=== PATIENT | female | born 1960 | race Caucasian/White ===

== ENCOUNTER → 2019-12-23 12:19 | Outpatient (BNVA) | payer OTHER, SELFPAY | PROVIDERS: Family Provider Registered Nurse; PCP Registered Nurse; Visit Provider Registered Nurse | DX: E03.9 Hypothyroidism, unspecified (principal) | CPT/HCPCS: 84432; 84443; 84481; 86376; 86800 ==

== ENCOUNTER → 2020-01-04 10:24 | Outpatient (BNVA) | payer OTHER, SELFPAY | PROVIDERS: Family Provider Registered Nurse; PCP Registered Nurse; Visit Provider Nurse Practitioner | DX: Z00.00 Encounter for general adult medical examination without abnormal findings (principal); R53.83 Other fatigue | CPT/HCPCS: 80053; 82306; 82607; 83036 ==

== ENCOUNTER → 2020-01-05 11:54 | Outpatient (BNVA) | payer OTHER, SELFPAY | PROVIDERS: Family Provider Registered Nurse; PCP Registered Nurse; Visit Provider Nurse Practitioner | DX: Z00.00 Encounter for general adult medical examination without abnormal findings (principal); R53.83 Other fatigue | CPT/HCPCS: 80053; 81001; 87086 ==

== ENCOUNTER → 2020-03-02 11:40 | Outpatient (BNVA) | payer OTHER, SELFPAY | PROVIDERS: Family Provider Registered Nurse; PCP Registered Nurse; Visit Provider Registered Nurse | DX: E03.9 Hypothyroidism, unspecified (principal) | CPT/HCPCS: 84443 ==

== ENCOUNTER → 2020-06-27 15:49 | Outpatient (BNVA) | payer OTHER, SELFPAY | PROVIDERS: Family Provider Registered Nurse; PCP Registered Nurse; Visit Provider Registered Nurse | DX: Z11.59 Encounter for screening for other viral diseases (principal) | CPT/HCPCS: 87635 ==

== ENCOUNTER → 2020-09-01 00:01 | Outpatient (BNVA) | payer OTHER, SELFPAY | PROVIDERS: Family Provider Registered Nurse; PCP Registered Nurse; Visit Provider Registered Nurse | DX: E03.9 Hypothyroidism, unspecified (principal); R31.9 Hematuria, unspecified | CPT/HCPCS: 80053; 81003; 82306; 82607; 83540; 84443; 87086 ==

== ENCOUNTER → 2020-12-04 15:43 | Outpatient (BNVA) | payer OTHER, SELFPAY | PROVIDERS: Family Provider Registered Nurse; PCP Registered Nurse; Visit Provider Nurse Practitioner Family | DX: E03.9 Hypothyroidism, unspecified (principal) | CPT/HCPCS: 80053; 84443; 85025 ==

== ENCOUNTER → 2020-12-07 16:39 | Outpatient (BNVA) | payer OTHER, SELFPAY | PROVIDERS: Family Provider Registered Nurse; PCP Registered Nurse; Visit Provider Family Medicine | DX: M54.5 Low back pain (principal) | CPT/HCPCS: 81003 ==

== ENCOUNTER → 2021-01-02 08:38 | Outpatient (BNVA) | payer OTHER, SELFPAY | PROVIDERS: Family Provider Registered Nurse; PCP Registered Nurse; Visit Provider Nurse Practitioner Family | DX: E03.9 Hypothyroidism, unspecified (principal); E66.9 Obesity, unspecified; R80.9 Proteinuria, unspecified | CPT/HCPCS: 36415; 80053; 82043; 82306; 84439; 84481; 85025 ==

== ENCOUNTER → 2021-01-04 16:08 | Outpatient (BNVA) | payer OTHER, SELFPAY | PROVIDERS: Family Provider Registered Nurse; PCP Registered Nurse; Visit Provider Family Medicine | DX: M54.9 Dorsalgia, unspecified (principal) | CPT/HCPCS: 74018 ==

== ENCOUNTER → 2021-02-07 11:02 | Outpatient (BNVA) | payer OTHER, SELFPAY | PROVIDERS: Family Provider Registered Nurse; PCP Registered Nurse; Visit Provider Family Medicine | DX: R10.13 Epigastric pain (principal); N02.9 Recurrent and persistent hematuria with unspecified morphologic changes; F41.9 Anxiety disorder, unspecified; Z20.828 Contact with and (suspected) exposure to other viral communicable diseases | CPT/HCPCS: 80053; 83690; 85025; 86140 ==

== ENCOUNTER → 2021-05-04 12:03 | Outpatient (BNVA) | payer OTHER, SELFPAY | PROVIDERS: Family Provider Registered Nurse; PCP Registered Nurse; Visit Provider Family Medicine | DX: E03.9 Hypothyroidism, unspecified (principal) | CPT/HCPCS: 84443 ==

== ENCOUNTER 2021-06-01 10:30 | Outpatient (CLI) | payer OTHER, SELFPAY ==
--- NOTE | 2021-06-01 10:37 | MM_ITS ---
WS: [id number] Bilateral screening digital mammogram, 06/01/2021 Clinical Data: SCREENING Comparison: 09/07/2019, 02/28/2012, 03/20/2006, 01/29/2005, 05/25/2003. Findings: The breast parenchymal pattern shows heterogeneous density No spiculated masses or clustered calcific ations are seen. There are small benign calcifications throughout both breasts. There are no secondar y signs of carcinoma. There are small lymph nodes in both axilla. MM/[place] [id number] Impression: 1. Negative bilateral mammogram unchanged. 2. Recommend annual screening mammograms. BIRADS: 1-Negative FOLLOW UP: 1 Year Follow-up The CAD quality checker was used.
== END 2021-06-01 10:31 | disposition home or self-care (01) ==
LOC: RADSHAW 10:35
PROVIDERS: PCP Registered Nurse; Visit Provider Family Medicine
DX: Z12.31 Encounter for screening mammogram for malignant neoplasm of breast (principal)
CPT/HCPCS: 77067

== ENCOUNTER → 2021-07-06 10:56 | Outpatient (BNVA) | payer OTHER, SELFPAY | PROVIDERS: PCP Registered Nurse; Visit Provider Family Medicine | DX: E03.9 Hypothyroidism, unspecified (principal); R80.9 Proteinuria, unspecified | CPT/HCPCS: 80053; 81003; 82043; 83690; 85025; 86140; 87086 ==

== ENCOUNTER → 2021-08-31 13:29 | Outpatient (BNVA) | payer OTHER, SELFPAY | PROVIDERS: PCP Registered Nurse; Visit Provider Family Medicine | DX: Z11.1 Encounter for screening for respiratory tuberculosis (principal) | CPT/HCPCS: 71046 ==

== ENCOUNTER → 2021-09-11 13:25 | Outpatient (BNVA) | payer OTHER, SELFPAY | PROVIDERS: PCP Registered Nurse; Visit Provider Nurse Practitioner Family | DX: Z98.1 Arthrodesis status (principal) | CPT/HCPCS: 72052 ==

== ENCOUNTER → 2021-09-28 00:01 | Outpatient (BNVA) | payer OTHER, SELFPAY | PROVIDERS: PCP Registered Nurse; Visit Provider Family Medicine | DX: Z87.440 Personal history of urinary (tract) infections (principal); R31.29 Other microscopic hematuria | CPT/HCPCS: 82043 ==

== ENCOUNTER → 2021-10-22 15:42 | Outpatient (BNVA) | payer OTHER, SELFPAY | PROVIDERS: PCP Registered Nurse; Visit Provider Family Medicine | DX: Z87.440 Personal history of urinary (tract) infections (principal); R31.29 Other microscopic hematuria; R80.9 Proteinuria, unspecified | CPT/HCPCS: 82043; 87086; 88112 ==

== ENCOUNTER → 2021-12-13 16:36 | Outpatient (BNVA) | payer OTHER, SELFPAY | PROVIDERS: PCP Registered Nurse; Visit Provider Family Medicine | DX: M25.562 Pain in left knee (principal) | CPT/HCPCS: 73562 ==

== ENCOUNTER → 2021-12-25 08:52 | Outpatient (BNVA) | payer OTHER, SELFPAY | PROVIDERS: PCP Registered Nurse; Visit Provider Family Medicine | DX: E53.8 Deficiency of other specified B group vitamins (principal); E03.9 Hypothyroidism, unspecified; Z13.6 Encounter for screening for cardiovascular disorders | CPT/HCPCS: 82607; 83921 ==

== ENCOUNTER → 2021-12-25 08:56 | Outpatient (BNVA) | payer OTHER, SELFPAY | PROVIDERS: PCP Registered Nurse; Referring Provider Family Medicine; Visit Provider Dermatology | DX: E03.9 Hypothyroidism, unspecified (principal); Z13.6 Encounter for screening for cardiovascular disorders; E53.8 Deficiency of other specified B group vitamins ==

== ENCOUNTER 2022-01-01 16:20 | Outpatient (CLI) | payer OTHER, SELFPAY ==
--- NOTE | 2022-01-01 16:45 | MR_ITS ---
WS: [id number] MRI CERVICAL SPINE NONCONTRAST HISTORY: M54.12 - Radiculopathy, cervical region COMPARISON: Cervical radiographs 09/11/2021 Technique: Multiplanar, multisequence noncontrast imaging of the cervical spine. Straightening of the normal cervical lordosis. Moderate to severe disc space narrowing from C3-4 to C 6-7. 2 mm retrolisthesis of C3, C4, C5 and C6. No acute fracture. Small amount of marrow edema in the C6 and C7 vertebral bodies. Signal within the cord is normal. There is increased T2 signal on the STIR sequence and the ventral c ord at the C4-5 level but this is only seen on one sequence. Mild ectopia of the cerebellar tonsils. No Chiari malformation. C2-C3: Shallow central disc protrusion no significant stenosis. C3-C4: Mild osteophytic ridging around the vertebral body and slight annular disc bulging. Osteophyte s encroach into the foramen causing mild bilateral foraminal narrowing and mild central stenosis. C4-C5: Near complete effacement of CSF surrounding the cord. Disc and osteophyte encroachment upon th e ventral thecal sac. Moderate size osteophytes extend into the foramen causing moderate bilateral fo raminal stenosis, RIGHT greater than LEFT. Moderate central stenosis. C5-C6: Osteophytic ridging and annular disc bulging. Disc and osteophyte encroachment upon the ventra l thecal sac with osteophytes extending into the foramen. Disc osteophyte in the LEFT foramen. Modera te central and bilateral foraminal stenosis. C6-C7: Diffuse osteophytic ridging with annular disc bulging. Disc osteophyte complexes and the neura l foramen. There is at least moderate central stenosis and bilateral foraminal stenosis. C7-T1: Mild osteophytic ridging with a small disc osteophyte complex in the LEFT foramen. Mild centra l and bilateral foraminal stenosis. T1-T2: Small central disc protrusion with mild contact on the ventral thoracic cord. Paraspinal soft tissue are normal. MR/MR cervical spin wo con* [id number] IMPRESSION: 1. Multilevel moderate to severe degenerative changes throughout the cervical spine. 2. Degenerative disc disease with osteophytes and stenoses from C3-4 to C7-T1. 3. Moderate central and bilateral foraminal stenosis from C4-5 through C6-7 d ue to disc and osteophyte disease. 4. Mild central and bilateral foraminal stenosis at C3-4 and C7-T1 due to disc and osteophyte disease. 5. Small central disc protrusions at C3-4 and T1-2.
== END 2022-01-01 16:21 | disposition home or self-care (01) ==
PROVIDERS: PCP Registered Nurse; Visit Provider Family Medicine
DX: M54.12 Radiculopathy, cervical region (principal); M25.78 Osteophyte, vertebrae; M48.02 Spinal stenosis, cervical region; M48.03 Spinal stenosis, cervicothoracic region; M50.21 Other cervical disc displacement, high cervical region; M51.24 Other intervertebral disc displacement, thoracic region
CPT/HCPCS: 72141

== ENCOUNTER → 2022-01-03 14:45 | Outpatient (BNVA) | payer OTHER, SELFPAY | PROVIDERS: PCP Registered Nurse; Visit Provider Urology | DX: R31.29 Other microscopic hematuria (principal) | CPT/HCPCS: 81003 ==

== ENCOUNTER → 2022-01-10 12:08 | Outpatient (BNVA) | payer OTHER, SELFPAY | PROVIDERS: PCP Registered Nurse; Visit Provider Family Medicine | DX: R42 Dizziness and giddiness (principal); R55 Syncope and collapse | CPT/HCPCS: 82728; 83550 ==

== ENCOUNTER 2022-01-11 09:17 | Outpatient (CLI) | payer OTHER, SELFPAY ==
--- NOTE | 2022-01-11 09:30 | US_ITS ---
WS: [id number] RENAL ULTRASOUND HISTORY: MICROSCOPIC HEMATURIA COMPARISON: 08/26/2018, CT 05/15/2018 TECHNIQUE: 2-D and color Doppler imaging of the kidney submitted. Right kidney: 9.7 cm x 3.6 cm x 4.2 cm. Normal size kidney. No cortical thinning. There is a very minimal prominence of the renal pelvis. Thi s was also noted on a prior ultrasound and also a CT. Probably normal extrarenal pelvis. No calyceal dilatation. Left kidney: 11.4 cm x 4.6 cm x 5.7 cm. Normal echogenicity with no hydronephrosis or mass. Aorta: Normal. Urinary Bladder: Minimally distended bladder. No intraluminal filling defect. US/US renal BI* [id number] IMPRESSION: 1. No hydronephrosis or solid renal mass. 2. RIGHT kidney is slightly smaller than the LEFT but this is not a new findin g. 3. Small extrarenal pelvis on the RIGHT. No calyceal dilatation.
== END 2022-01-11 09:18 | disposition home or self-care (01) ==
PROVIDERS: PCP Registered Nurse; Visit Provider Urology
DX: R31.29 Other microscopic hematuria (principal)
CPT/HCPCS: 76770

== ENCOUNTER 2023-08-13 10:34 | Outpatient (CLI) | payer OTHER, SELFPAY ==
--- NOTE | 2023-08-13 10:00 | MM_ITS ---
WS: [email or web address] BILATERAL 3D TOMOSYNTHESIS DIGITAL SCREENING MAMMOGRAPHY WITH CAD CLINICAL INFORMATION: SCREENING HISTORY: Screening mammogram. No current complaints. COMPARISON: 2020 TECHNIQUE: Bilateral CC and MLO views. FINDINGS: The breasts are composed of heterogeneous fibroglandular density tissue, which can limit the detectio n of small underlying mass lesions. No suspicious mass, asymmetry, calcifications, or architectural d istortion. No evidence of malignancy. Punctate and lucent centered calcifications. Vascular calcifica tion. IMPRESSION: MM/[place] [id number] BI-RADS: 2-Benign FOLLOW UP: 1 Year Follow-up Recommend return to annual screening mammography.
== END 2023-08-13 10:35 | disposition home or self-care (01) ==
LOC: MOBLMAM 10:39
PROVIDERS: PCP Registered Nurse; Visit Provider Nurse Practitioner Family
DX: Z12.31 Encounter for screening mammogram for malignant neoplasm of breast (principal); E03.9 Hypothyroidism, unspecified; R31.29 Other microscopic hematuria
CPT/HCPCS: 77063; 77067; 80053; 80061; 81000; 82306; 84439; 84443; 85025

== ENCOUNTER → 2023-11-06 11:29 | Outpatient (BNVA) | payer OTHER, SELFPAY | PROVIDERS: PCP Registered Nurse; Visit Provider Nurse Practitioner Family | DX: E88.9 Metabolic disorder, unspecified (principal); R31.29 Other microscopic hematuria | CPT/HCPCS: 80053; 81003; 87086 ==

== ENCOUNTER → 2024-01-06 09:34 | Outpatient (BNVA) | payer OTHER, SELFPAY | PROVIDERS: PCP Registered Nurse; Visit Provider Nurse Practitioner Family | DX: E88.9 Metabolic disorder, unspecified (principal); E03.9 Hypothyroidism, unspecified; R80.9 Proteinuria, unspecified; N28.9 Disorder of kidney and ureter, unspecified; R31.29 Other microscopic hematuria; Z87.440 Personal history of urinary (tract) infections | CPT/HCPCS: 80053; 81000; 81003; 82043; 87086 ==

== ENCOUNTER 2024-01-14 06:36 | Outpatient (CLI) | payer OTHER, SELFPAY ==
--- NOTE | 2024-01-14 06:45 | US_ITS ---
WS: [email or web address] ULTRASOUND RENAL TECHNIQUE: Ultrasound examination of both kidneys. CLINICAL INFORMATION: N28.9 - Disorder of kidney and ureter, unspecified COMPARISON: 01/11/2022 and 08/26/2018 FINDINGS: RIGHT: Right kidney is normal in size and appearance. Normal RIGHT extrarenal pelvis unchanged compared to p revious. Echogenicity: Normal. Cortical thickness: 0.9 cm; Normal. Hydronephrosis: None. Perinephric fluid: None. Right kidney measures: 10.5 cm x 5.2 cm x 4.4 cm. LEFT: Left kidney is normal in size and appearance. Echogenicity: Normal. Cortical thickness: 1.0 cm; Normal. Hydronephrosis: None. Perinephric fluid: None. Left kidney measures: 11.4 cm x 4.4 cm x 5.2 cm. Normal visualized aorta. Normal bladder. IMPRESSION: 1. Normal renal ultrasound 2. No significant changes since 01/11/2022
== END 2024-01-14 06:37 | disposition home or self-care (01) ==
LOC: RAD 06:36
PROVIDERS: PCP Registered Nurse; Visit Provider Nurse Practitioner Family
DX: N28.9 Disorder of kidney and ureter, unspecified (principal)
CPT/HCPCS: 76770

== ENCOUNTER → 2024-02-25 13:39 | Outpatient (BNVA) | payer OTHER, SELFPAY | PROVIDERS: PCP Registered Nurse; Visit Provider Nurse Practitioner Family | DX: J18.9 Pneumonia, unspecified organism (principal) | CPT/HCPCS: 71046 ==

== ENCOUNTER → 2024-03-15 11:21 | Outpatient (BNVA) | payer OTHER, SELFPAY | PROVIDERS: PCP Nurse Practitioner Family; Visit Provider Nurse Practitioner Family | DX: N28.9 Disorder of kidney and ureter, unspecified (principal); E03.9 Hypothyroidism, unspecified; R53.83 Other fatigue; R06.02 Shortness of breath; R05.9 Cough, unspecified | CPT/HCPCS: 71046; 80053; 82607; 82728; 83550; 84443; 85025; 85651; 86140 ==

== ENCOUNTER → 2024-04-14 11:10 | Outpatient (BNVA) | payer OTHER, SELFPAY | PROVIDERS: PCP Nurse Practitioner Family; Visit Provider Nurse Practitioner Family | DX: R31.29 Other microscopic hematuria (principal); R80.9 Proteinuria, unspecified; Z87.440 Personal history of urinary (tract) infections | CPT/HCPCS: 81003; 87086 ==

== ENCOUNTER → 2024-06-18 12:05 | Outpatient (BNVA) | payer OTHER, SELFPAY | PROVIDERS: PCP Nurse Practitioner Family; Visit Provider Nurse Practitioner Family | DX: Z87.440 Personal history of urinary (tract) infections (principal) | CPT/HCPCS: 81003; 87077; 87086; 87184 ==

== ENCOUNTER → 2024-06-22 11:11 | Outpatient (BNVA) | payer OTHER, SELFPAY | PROVIDERS: PCP Nurse Practitioner Family; Visit Provider Nurse Practitioner Family | DX: N28.9 Disorder of kidney and ureter, unspecified (principal); E03.9 Hypothyroidism, unspecified; Z87.440 Personal history of urinary (tract) infections | CPT/HCPCS: 81003; 87086 ==

== ENCOUNTER → 2024-07-26 16:32 | Outpatient (BNVA) | payer OTHER, SELFPAY | PROVIDERS: PCP Nurse Practitioner Family; Visit Provider Nurse Practitioner Family | DX: N39.0 Urinary tract infection, site not specified (principal) | CPT/HCPCS: 81003; 87086 ==

== ENCOUNTER 2024-08-18 13:18 | Outpatient (CLI) | payer OTHER, SELFPAY ==
--- NOTE | 2024-08-18 13:20 | MM_ITS ---
WS: [email or web address] BILATERAL 3D TOMOSYNTHESIS DIGITAL SCREENING MAMMOGRAPHY WITH CAD CLINICAL INFORMATION: SCREENING HISTORY: Screening mammogram. No current complaints. COMPARISON: 2022 TECHNIQUE: Bilateral CC and MLO views. FINDINGS: The breasts are composed of heterogeneous fibroglandular density tissue, which can limit the detectio n of small underlying mass lesions. No suspicious mass, asymmetry, calcifications, or architectural d istortion. No evidence of malignancy. Punctate and lucent centered calcifications. MM/MM [facility] tomosynthesis [id number] IMPRESSION: DENSITY: The breasts are heterogeneously dense, which may obscure small masses. BI-RADS: 2 - Benign FOLLOW UP: 1 Year Follow-up Recommend return to annual screening mammography.
== END 2024-08-18 13:19 | disposition home or self-care (01) ==
LOC: MOBLMAM 13:19
PROVIDERS: PCP Nurse Practitioner Family; Visit Provider Nurse Practitioner Family
DX: Z12.31 Encounter for screening mammogram for malignant neoplasm of breast (principal); R92.333 Mammographic heterogeneous density, bilateral breasts; R92.1 Mammographic calcification found on diagnostic imaging of breast
CPT/HCPCS: 77063; 77067

== ENCOUNTER → 2024-09-14 11:09 | Outpatient (BNVA) | payer OTHER, SELFPAY | PROVIDERS: PCP Nurse Practitioner Family; Visit Provider Nurse Practitioner Family | DX: M79.644 Pain in right finger(s) (principal) | CPT/HCPCS: 73140 ==

== ENCOUNTER → 2025-01-05 12:11 | Outpatient (BNVA) | payer OTHER, SELFPAY | PROVIDERS: PCP Nurse Practitioner Family; Visit Provider Nurse Practitioner Family | DX: N28.9 Disorder of kidney and ureter, unspecified (principal); R53.83 Other fatigue; E03.9 Hypothyroidism, unspecified | CPT/HCPCS: 80053; 82607; 82728; 83735; 84439; 84443; 85025 ==

== ENCOUNTER 2025-01-11 05:00 | Outpatient (RCR) | payer OTHER, SELFPAY | END 2025-02-09 23:59 | disposition home or self-care (01) | LOC: WPT 05:00 | PROVIDERS: Visit Provider Nurse Practitioner Family | DX: M48.02 Spinal stenosis, cervical region (principal) | CPT/HCPCS: 97110; 97112; 97140; 97161; 97530 ==

== ENCOUNTER 2025-02-10 05:00 | Outpatient (RCR) | payer OTHER, SELFPAY | END 2025-03-12 23:59 | disposition home or self-care (01) | LOC: WPT 05:00 | PROVIDERS: Visit Provider Nurse Practitioner Family | DX: M48.02 Spinal stenosis, cervical region (principal) | CPT/HCPCS: 97110; 97530 ==

== ENCOUNTER → 2025-03-23 09:14 | Outpatient (BNVA) | payer OTHER, SELFPAY | PROVIDERS: PCP Nurse Practitioner Family; Visit Provider Nurse Practitioner Family | DX: R53.83 Other fatigue (principal); N28.9 Disorder of kidney and ureter, unspecified; E88.9 Metabolic disorder, unspecified; Z87.440 Personal history of urinary (tract) infections | CPT/HCPCS: 81003; 82043; 86038; 87077; 87086; 87184 ==

== ENCOUNTER → 2025-08-17 11:10 | Outpatient (BNVA) | payer OTHER, SELFPAY | PROVIDERS: Visit Provider Internal Medicine Rheumatology | DX: Z01.89 Encounter for other specified special examinations (principal); R53.83 Other fatigue | CPT/HCPCS: 36415; 86160; 86162; 86235; 86255; 86376 ==

== ENCOUNTER 2025-08-30 12:33 | Outpatient (CLI) | payer OTHER, SELFPAY ==
[2025-08-30 12:43] VITALS: BP 168/88; PULSE 91; BMI 33.0
--- NOTE | 2025-08-30 12:44 | ECG_ITS ---
[facility] Date: 2025-[facility]30 Pat Name: Yeison Pryor Department: Room: Gender: Female [employer]ocket [employer]ic: : 1960 Requested By: Kulwant Fontana Order Number: [id number] Perez MD: Nirav Majano M.D. Interpretive Statements EXERCISE STRESS TEST EXERCISE DATA: The patient was exercised by Preet protocol. Baseline heart rate was 75 beats per minute. Baseline blood pressure was 154/78 millimeters of mercury. Maximal predicted heart rate was 153 beats per minute. Maximum heart rate achieved was 149, which was 97% of the maximum predicted heart rate. Maximum blood pressure was 198/88 millimeters of mercury. Total exercise time was 4 minutes and 38 seconds. Maximum METs achieved was 7. The reason for ending the test was maximal effort achieved. ELECTROCARDIOGRAM: BASELINE: Showed sinus rhythm, normal axis, no significant ST-T changes at the baseline noted. [] EXERCISE: At the peak exercise level, [] No significant ST-T changes suggestive of ischemia noted. Frequent PVCs noted at exercise [] RECOVERY: During the recovery period, heart rate dropped appropriately. No significant ST-T changes in the recovery suggestive of ischemia noted. [] CONCLUSION: 1. Exercise capacity is fair. 2. Heart rate response was appropriate. 3. Blood pressure response was hypertensive 4. No ischemic symptoms mentioned on stress test 5. Stress test is not suggestive of ischemia Electronically Signed On 09-05-2025 11:45:11 METAL SASH SETTER by Nirav Majano M.D. [email or web address]
== END 2025-08-30 12:34 | disposition home or self-care (01) ==
LOC: CDL 12:36
PROVIDERS: PCP Family Medicine; Visit Provider Nurse Practitioner Family
DX: R06.02 Shortness of breath (principal); R53.83 Other fatigue; R93.1 Abnormal findings on diagnostic imaging of heart and coronary circulation
CPT/HCPCS: 93017

== ENCOUNTER 2025-09-14 09:21 | Outpatient (CLI) | payer OTHER, SELFPAY ==
--- NOTE | 2025-09-14 09:20 | MM_ITS ---
WS: [email or web address] BILATERAL SCREENING DIGITAL TOMOSYNTHESIS MAMMOGRAM WITH CAD HISTORY: SCREENING COMPARISON: 08/18/2024, 08/13/2023, 06/01/2021 Bilateral CC and MLO views with tomosynthesis and synthetic mammography submitted. Computer aided detection analyzed. Breast composition: The breasts are heterogeneously dense, which may obscure small masses. No suspicious masses, microcalcifications or architectural distortion. Numerous round benign calcifications in each breast. MM/MM scr tomosynthesis [id number] IMPRESSION: BI-RADS: 2 - Benign FOLLOW UP: 1 Year Follow-up
== END 2025-09-14 09:22 | disposition home or self-care (01) ==
LOC: MOBLMAM 09:25
PROVIDERS: PCP Family Medicine; Visit Provider Nurse Practitioner Family
DX: Z12.31 Encounter for screening mammogram for malignant neoplasm of breast (principal); E03.9 Hypothyroidism, unspecified; R92.333 Mammographic heterogeneous density, bilateral breasts; R92.1 Mammographic calcification found on diagnostic imaging of breast
CPT/HCPCS: 77063; 77067; 87086

== ENCOUNTER → 2025-09-21 16:29 | Outpatient (BNVA) | payer OTHER, SELFPAY | PROVIDERS: PCP Family Medicine; Visit Provider Nurse Practitioner Family | DX: R06.02 Shortness of breath (principal) | CPT/HCPCS: 71046 ==

== ENCOUNTER 2025-10-10 06:13 | Outpatient (CLI) | payer OTHER, SELFPAY ==
--- NOTE | 2025-10-10 06:30 | USCV_ITS ---
Yeison Pryor Age: 65 Gender: F : 1960 Exam Date: 10/10/2025 06:42 Ordering Phys: Kulwant Bray Technologist: Exam Location: [facility] [place] Indication: cp sob BP: 120 / 80 HR: 72 Rhythm: Sinus Technical Quality: Adequate MEASUREMENTS (Male / Female) Normal Values 2D ECHO LV Diastolic Diameter PLAX 4.4 cm 4.2 - 5.9 / 3.9 - 5.3 cm IVS Diastolic Thickness 1.2 cm 0.6 - 1.0 / 0.6 - 0.9 cm IVS Systolic Thickness 1.6 cm LVPW Diastolic Thickness 1.2 cm 0.6 - 1.0 / 0.6 - 0.9 cm LVPW Systolic Thickness 1.7 cm LVOT Diameter 2.1 cm LV Ejection Fraction 2D Teich 65.7 % LV Ejection Fraction MOD 4C 64.6 % LV Ejection Fraction MOD 2C 63.8 % LV Ejection Fraction 2C AL 63.2 % LA Diameter 3.9 cm RA Systolic Volume 4C AL 29.4 ml RA Systolic Volume 4C MOD 28.2 ml Aorta at Sinotubular Diameter 2.3 cm IVC Diameter 1.6 cm M-MODE LA Ao Ratio MM 1.5 AV Cusp Separation MM 1.7 cm DOPPLER AV Peak Velocity 135.0 cm/s LVOT Peak Velocity 90.0 cm/s AV Area Cont Eq vti 2.8 cm squared AV Area Cont Eq pk 2.3 cm squared MV Peak Velocity 114.0 cm/s MV Area PHT 2.6 cm squared Mitral E to A Ratio 0.9 TV Peak Velocity 160.0 cm/s TR Peak Velocity 162.0 cm/s TR Peak Gradient 10.5 mmHg TV Peak E Velocity 91.0 cm/s PV Peak Velocity 91.0 cm/s FINDINGS Left Ventricle Normal left ventricular size, systolic function and wall thickness, with no regional wall motion abnormalities. Left ventricular ejection fraction is estimated at 60 %. Grade I/IV diastolic dysfunction (abnormal relaxation filling pattern), normal to mildly elevated filling pressures. Right Ventricle Normal right ventricular size and systolic function. Right Atrium Normal right atrial size. Left Atrium Normal left atrial size. IA Septum Normal appearance of the interatrial septum. Mitral Valve Mildly thickened mitral valve. No mitral valve stenosis. Mild- moderate mitral valve regurgitation. Aortic Valve Moderate aortic valve calcification. No aortic valve stenosis. Tricuspid Valve Mild tricuspid valve regurgitation. Pulmonic Valve Normal pulmonic valve structure. No pulmonic valve stenosis or regurgitation. Pericardium No pericardial effusion. Aorta Normal diameter of the aortic root and ascending thoracic aorta. IVC Normal IVC diameter. CONCLUSIONS Normal left ventricular size, systolic function and wall thickness, with no regional wall motion abnormalities. Left ventricular ejection fraction is estimated at 60 %. Grade I/IV diastolic dysfunction (abnormal relaxation filling pattern), normal to mildly elevated filling pressure Mildly thickened mitral valve. No mitral valve stenosis. Mild- moderate mitral valve regurgitation. Moderate aortic valve calcification. No aortic valve stenosis. Mild tricuspid valve regurgitation. There is no pericardial effusion. Right atrial pressure is around 5 mm of mercury. Maira Rodríguez MD (Electronically Signed) Final Date: 16 October 2025 15:43 S
== END 2025-10-10 06:14 | disposition home or self-care (01) ==
LOC: RAD 06:14
PROVIDERS: PCP Family Medicine; Visit Provider Nurse Practitioner Family
DX: R06.09 Other forms of dyspnea (principal); R93.1 Abnormal findings on diagnostic imaging of heart and coronary circulation; I34.0 Nonrheumatic mitral (valve) insufficiency; I35.8 Other nonrheumatic aortic valve disorders; I07.1 Rheumatic tricuspid insufficiency
CPT/HCPCS: 93306